=== PATIENT | female | born 1990 | race Caucasian/White ===

== ENCOUNTER 2018-04-17 17:35 | Emergency (ER) | payer OTHER ==
[~2018-04-17] VITALS: Ht 157.5 cm; Wt 66.2 kg
[2018-04-17 17:48] VITALS: Ht 157.5 cm; Wt 66.2 kg
[2018-04-17 19:00] LABS: CALCIUM 8.5 mg/dL (8.5-10.1); CARBON DIOXIDE 23.1 mmol/L (21-32); CHLORIDE SERUM 102 mmol/L (98-107); CREATININE SERUM 0.6 mg/dL (0.6-1.0); GFR1 > 60 mL/min; GLUCOSE SERUM 94 mg/dL (74-106); POTASSIUM SERUM 3.4 mmol/L (3.5-5.1); SODIUM SERUM 139 mmol/L (136-145)
[2018-04-17 19:02] LABS: BASOPHIL % 0.4 % (0-2); PLATELET COUNT 374 x10^3mcL (130-400); RED CELL DISTRIBUTION WIDTH 13.8 % (11.5-14.5)
[2018-04-17 19:42] VITALS: BP 122/76
== END 2018-04-17 19:42 | disposition home or self-care (01) ==
LOC: ED 17:35 → EDBD 17:35 → ED 19:42
PROVIDERS: Emergency Medicine
DX: R07.89 Other chest pain (principal); E87.6 Hypokalemia; R42 Dizziness and giddiness
CPT/HCPCS: 36415; J1885; Q0092